=== PATIENT | female | born 1940 | race Caucasian/White ===

== ENCOUNTER 2017-03-03 10:48 | Day surgery (SDC) | payer MEDICARE, OTHER ==
[2017-03-03] VITALS (8 sets, daily range): BP systolic 127–154; BP diastolic 50–67; PULSE 57–72; RESP 14–18; O2SAT 95–98
[~2017-03-03] VITALS: Ht 157.5 cm; Wt 52.6 kg
[~2017-03-03 10:48] MED LIST: ALBU8.5H2 INHALATION; BUDE8.435 NS; CETI10TA27 PO; CHOL10008 PO; CLOP75TA3 PO; CeFAZolin Inj 2 GM in IV Premix 1 EACH IV ONE; Dexamethasone 4 mg/mL Inj IVPUSH PRN; EPHEDrine Sulfate 50 mg/mL Inj IVPUSH PRN; FLUT1DIS5 INHALATION; HYDR-4003 PO; HYDROmorphone 1 mg/mL Inj IVPUSH PRN; KEP500TA PO; Labetalol 5 mg/mL 4 mL Inj IV PRN; Lactated Ringer's 1,000 ML IV SCH; Lactated Ringer's 500 ML IV PRN; MONT10TA23 PO; MULT-666 PO; MetoCLOpramide 5 mg/mL 2 mL Inj IVPUSH PRN; Ondansetron 2 mg/mL 2 mL Inj IVPUSH PRN; Phenylephrine 10,000 mCg/mL Inj IVPUSH PRN; RANI150C4 PO; fentaNYL-PF 50 mCg/mL 2 mL Inj IVPUSH PRN; hydrALAZINE 20 mg/mL Inj IVPUSH PRN
[2017-03-03] MEDS ORDERED: Ketamine 10 mg/mL 20 mL Inj ONE (10:49)
[2017-03-03] MEDS ORDERED: fentaNYL-PF 50 mCg/mL 2 mL Inj ONE (10:49)
[2017-03-03] MEDS ORDERED: CeFAZolin Inj 2 gm / 50mL D5W IV ONE (10:50)
[2017-03-03] MEDS: Lactated Ringer's 1,000 ML IV SCH ×2 (10:51→14:01)
--- NOTE | 2017-03-03 13:47 | PCM.HPANE ---
Patient Data Date of Service: March 03, 2017 Surgeon Admitting Provider: Attending Provider:Analilia Peace MD Primary Care Physician:Becka Lema MD Other Provider:Simin Ferrara Anesthesia Reason for Visit Chronic Cholecystitis Ht/WT & BMI Height (Feet): 5 Height (Inches): 2.00 Weight (Kilograms): 52.6 Body Mass Index 21.00 Allergies Coded Allergies: aspirin (Verified Allergy, Severe, RESPIRATORY DIFFICULTY, 02/26/17) Uncoded Allergies: DUST MITES (Allergy, Unknown, UNKNOWN, 02/26/17) Past Anesthesia History Anesthesia History: Denies:: Abnormal Airway, Anesthesia Reactions, Difficult Intubation, Fam Anesthesia Reaction, Fam Malignant Hypertherm, Malignant Hyperthermia Diabetes History Hx Diabetes?: Yes Current Bedside Blood Glucose: 99 MRSA MRSA: No Medications Blood Thinner: Plavix Home Meds Incl Beta Mely: Yes (Metoprolol 12.5mg) Date Beta Mely Taken: February 17, 2017 Time Beta Mely Taken: 1800 Active Scripts Clopidogrel Bisulfate (Plavix)75 Mg Ywnsbv12 Mg PO DAILY #30 TABLET Ref 0 Prov:Jonah Ochoa DO 09/18/16 Levetiracetam (Keppra)500 Mg Nrkymf936 Mg PO BID #60 TABLET Prov:Avery Parker 08/18/16 Reported Medications Ranitidine 150 Mg Fxszfsg395 Mg PO BID Ref 0 02/26/17 Hydrocodone-Acetaminophen 5-325 mg 1 Each Tablet1 Tablet PO Q6H PRN For Pain Ref 0 02/26/17 Cholecalciferol (Vitamin D3) (Vitamin D3)1,000 Unit Tab.chew1,000 Unit PO DAILY 09/16/16 Budesonide 32 Mcg/Actuation Kayenta.pump8.43 Ml NS BID 09/16/16 Multivitamin (Once Daily)1 Each Tablet1 Each PO DAILY 09/16/16 Montelukast 10 Mg Mujcjf54 Mg PO DAILY #30 09/16/16 Cetirizine HCl (All Day Allergy)10 Mg Tab.chew10 Mg PO DAILY 09/16/16 Albuterol HFA (Proair HFA)8.5 Gm Hfa.aer.ad2 Puff INHALATION Q4H PRN For Shortness of Breath #9 09/16/16 Fluticasone/Salmeterol (Advair 500-50 Diskus)1 Each Disk.w.dev1 Puff INHALATION BID #180 09/16/16 Discontinued Reported Medications Prednisone (PredniSONE)50 Mg Natmlg91 Mg PO DAILY Ref 0 02/26/17 Metoprolol Tartrate 25 Mg Zahqvh87.5 Mg PO BID 30 Days Ref 0 02/26/17 Discontinued Scripts Metoprolol Tartrate 25 Mg Qresgb47 Mg PO BID #20 TABLET Prov:Jose Cruz Jackson 09/18/16 Prednisone (PredniSONE)20 Mg Teavvl95 Mg PO DAILY #8 TABLET Ref 0 Prov:Jonah العراقي 09/17/16 History History of ENT Problems?: No HEENT History: Positive for:: Sinus Problem (ALLERGIC RHINITIS) Denies:: Abnormal Airway Cataracts Difficult Intubation Dysphagia Hearing Problem Denture Type: None Teeth Condition: Within Normal Limits Other HEENT Pertinent History: S/P TONSILLECTOMY Hx of Heart Problems?: Yes Cardiovascular History: Positive for:: Atrial Fibrillation (SOLITARY BOUT OF PSVT R/T ETOH,OTC COLD MEDS & ALBUTEROL USAGE) Heart Murmur (HX OF-NONE HEARD CURRENTLY ECHO 09/2016 EF 65-70%) Irregular Heartbeat (PSVT, PVC'S ZIO PATCH 10/2016 PT REPORTS PALPITATIONS) Denies:: AICD Cardiac Surgery Chest Pain Congestive Heart Failure Edema Hypertension Pacemaker Thrombophlebitis Valvular Heart Disease Other Cardiac History: HX OF MACROCYTOSIS Hx of Respiratory Problem?: Yes Respiratory History: Positive for:: Asthma (HX OF RESP ARREST/VENTILATOR 2013) COPD (PFT'S 02/2010 & 10/2014 SHOW MOD PERSISTANT ASTHMA) Dyspnea (GANN) Use of Inhalers / NEBS Denies:: Chest Surgery Cough Emphysema Hemoptysis Pneumonia Tuberculosis Use of C-PAP Machine Hx Neurologic Problems?: Yes Neurological History: Positive for:: Dementia (COGNIYIVE IMPAIRMENT-REFERRAL TO DR. Mele BURNS/NEUROLOGY) Dizziness (Dizziness) Seizures (LAST SEIZURE 08/2016 ON KEPPRA) Denies:: Alzheimer's Disease CVA Headaches Parkinson's Disease Hx of GI Problems?: Yes Other GI Pertinent History: S/P APPY Hx of Problems?: No Genitourinary History: Denies:: HX of Hemodialysis Kidney Stones Urinary Tract Infection HX of Peritoneal Dialysis: No Female Hx: Denies:: Currently Endometriosis Pelvic Inflammatory Problems with Breasts? Skin History: Denies:: History Skin Disorders? Pressure Ulcers Hx Musculoskeletal Problems?: Yes Musculoskeletal History: Positive for:: Osteoarthritis (OSTEOPENIA) Denies:: Back Injury (C/OF BACK PAIN) Joint Replacement Musculoskeletal Trauma Hx of Psycho/Social Problems?: Yes Psycho Social History: Positive for:: Anxiety Hx Depression Denies:: Bipolar Disorder Suicide Attempt Hx Surgeries?: Yes (APPY,TONSILLECTOMY) Hx Any Other Health Problems?: Yes Other History: Positive for:: Hospitalization (seizure, asthma, ) Denies:: Cancer Endocrine Disease Thyroid Disease History Blood Transfusions: Denies:: Blood Transfuse Reaction Blood Transfusions Hx Diabetes: YesBedside Blood Glucose: 99 Hx Alcohol Use: Yes (HX OF HEAVIER USAGE)Alcoholic Drinks Per Day: 2-3/DAYHx Substance Use: No Smoking Status: Former Smoker Have You Smoked inLast 12 mo: NoApprox How Many Cigarettes/day: 1/2 PPD X 26YRS Stop/Bang S-Snoring: Do You Snore Loudly: No T-Tired: feel tired, fatigued: No O-Obsered: Observed not breath: No P-Blood Pressure: treated: No B- Body Mass Index > 35 kg/m2: No A- Age over 50: Yes N- Neck Large Circumference: No G- Gender Male: No DEREK Total Score: 1 DEREK Risk Assessment: Low Risk, <3 Yes Risk Assessment Category Category 1A: Patient has history of documented sleep apnea, and HAS NOT received any narcotic, sedative or anesthesia administration during this stay. Category 1B: Patient has history of documented sleep apnea, and HAS received any narcotic , sedative or anesthesia administration during this stay Category 2: Patient has SUSPECTED Obstructive Sleep Apnea, and HAS received any narcotic , sedative or anesthesia administration during this stay. Category 3: Patient has SUSPECTED Obstructive Sleep Apnea and HAS NOT received narcotic, sedative or anesthesia administration during this stay. Category 4: Outpatient in Procedural Areas with known sleep apnea or who screen positive for High Risk via the STOP/BANG questionnaire. Exam Exam Vital Signs Vital Signs Date Time Temp Pulse Resp B/P Pulse Ox O2 Delivery O2 Flow Rate FiO2 03/03/17 11:33 36.7 72 18 133/65 97 Room Air General Appearance: Alert, Oriented X3, Cooperative, No Acute Distress HEENT/AIRWAY: MP 2 Lungs: Clear to Auscultation, Normal Air Movement Heart: Exam Unremarkable, Regular Rate/Rhythm, No Murmurs/Rubs/Gallops Meds/Labs/Diagnostics Admission Meds Current Medications Lactated Ringer's (Lr) 1,000 ml @ 120 mls/hr Q8H20M IV Last administered on 10:51; Start 03/03/17 at 05:00; Stop 03/03/17 at 13:21; Status DC Gabapentin (Neurontin) 600 mg STK-MED ONCE .ROUTE Last administered on 11:20; Start 03/03/17 at 10:51; Stop 03/03/17 at 10:54; Status DC Acetaminophen (Tylenol) 650 mg STK-MED ONCE PO Last administered on 03/03/17 11:20; Start 03/03/17 at 10:52; Stop 03/03/17 at 10:55; Status DC Bedside Blood Glucose: 99 Plan Impression Patient chart reviewed, patient interviewed and anesthestic plan with risks, benefits, and alternatives discussed, and informed consent obtained. NPO per Anesth. Guidelines: Yes ASA Physical Status: ASA3 Severe Disease Anesthetic Plan: GA Bene/Risks/Altern/Consents: Yes HP Complete Prior to Induction: Yes Cristino Dejesus MD March 03, 2017 13:47
[2017-03-03] MEDS ORDERED: Bupivacaine-MPF 0.5% 30 mL Inj INFILTRATE ONE (14:01)
[2017-03-03] MEDS ORDERED: oxyCODONE-Acetamin 5-325 mg Tablet PO PRN (15:25)
--- NOTE | 2017-03-03 15:31 | PCM.SURGOP ---
Surgical Operative Report Date of Service: March 03, 2017 Pre Operative Diagnosis Chronic cholecystitis Post Operative Diagnosis Chronic cholecystitis Procedure: Laparoscopic cholecystectomy Surgeon and Stem Cleaning Machine Feeder: Surgeon: Analilia Peace M.D. Assistants: Juventino Cook PA-C; YVONNE Sanz The presence of an assistant store manager was necessary for dissection and retraction. Indication for Procedure This is a 76-year-old woman who has a history of right upper quadrant pain, usually in the evening. One episode was severe and caused her to go to urgent care. A CT scan was performed of the abdomen which revealed thickening of the gallbladder wall associated with sludge. A follow up ultrasound revealed at least one gallstone as well, with gallbladder wall thickening of 2 mm. She was diagnosed with likely chronic cholecystitis and consented for laparoscopic cholecystectomy. Findings: 1. The gallbladder was moderately inflamed, consistent with a diagnosis of chronic cholecystitis. 2. Intraoperative cholangiogram was attempted, however, the cystic duct was occluded with sludge. Some of this was removed by milking it out, but it could not be entirely removed, and therefore the cholangiogram could not be completed. Procedure Details The patient was brought to the operating room and placed in supine position. General endotracheal anesthesia was smoothly induced. Antibiotics were infused. A warming blanket and SCDs were placed. A foot board was placed. The operative field was prepped and draped in sterile fashion. A pause was performed to confirm the correct patient, procedure, site, and side. A transverse 10 mm incision was made just below the umbilicus. The abdomen was entered under direct vision using a Monika port. Three additional 5 mm ports were placed in the epigastrium and right upper quadrant. The gallbladder was identified and lifted cephalad. There were moderate adhesions due to cholecystitis. The duodenum was gently dissected off of the gallbladder. Dissection then proceeded to identify the cystic duct and to expose the lower one-third of the cystic plate. The cystic artery was divided with electrocautery and clipped once on the patient's side, and cauterized on the gallbladder side. Once only a single structure was seen to be entering the gallbladder, a clip was placed on the gallbladder side of the cystic duct. A ductotomy was made and a cholangiocatheter was inserted. However, despite adequate insertion, it could not be flushed. The Erickson catheter was then removed and a grasper was used to milk out multiple portions of gallbladder sludge from the cystic duct. These were tiny and black. They appeared to be occluding the cystic duct. The cholangiocatheter was reinserted. It still would not flush. The cystic duct was clearly long and was the only structure entering the gallbladder; therefore the cholangiogram was abandoned. The cholangiocatheter was then removed, two clips were placed on the cystic duct and it was divided. The gallbladder was then removed from its bed on the liver with electrocautery. Prior to completely removing the gallbladder, a final look was taken at the stump of the cystic artery and cystic duct, and there was no bleeding or bile leak. The gallbladder was then fully removed from the liver and placed in an EndoCatch bag and removed. The three 5 mm ports were removed under direct vision, the 10 mm mid abdominal port was removed, and a duinfr-nh-rkayw 0 PDS was used to close the fascia. There was no fascial defect at the end of the case. 0.5% Marcaine with epinephrine was infused at all port sites for postoperative analgesia. The skin was closed with subcuticular 4-0 Monocryl. Sterile dressings were placed. Sponge, instrument, and needle counts were correct at the end of the procedure. The patient was awakened from general anesthesia and taken to the postoperative care unit in good condition. Complications There were no periprocedural complications identified. Surgical Specimen Removed: Yes Specimen sent to Pathology: Yes Surgical Specimen description: Gallbladder Anesthetic Plan: GA Grafts, Implants: None Output, Estimated Blood Loss: 5 (ml) Blood Administration during lima: No Analilia Peace MD March 03, 2017 15:31
--- NOTE | 2017-03-03 15:47 | PCM.ANEP1 ---
Post Anesthesia PACU Phase 1 Assessment Vital Signs Vital Signs Date Time Temp Pulse Resp B/P Pulse Ox O2 Delivery O2 Flow Rate FiO2 03/03/17 15:44 59 16 132/57 98 Room Air 03/03/17 15:35 64 14 127/60 96 03/03/17 15:20 62 15 133/61 95 03/03/17 15:05 60 16 133/52 98 03/03/17 15:00 59 14 138/55 98 03/03/17 14:55 57 14 145/50 98 03/03/17 14:50 36.7 59 16 154/67 98 Room Air 03/03/17 11:33 36.7 72 18 133/65 97 Room Air Anesthetic Administered: GA Level of Alertness: Awake, talking Pain: No Nausea or Vomiting: No CV Function & Hydration Stable: Yes Airway Device: Endotrachial Tube Oxygen Delivery: Room Air Lungs: Clear to Auscultation, Normal Air Movement PACU Phase 2 Assessment Complications: No Follow up Care: N/A Patient Instructions Provided: N/A Cristino Dejesus MD March 03, 2017 15:47
--- NOTE | 2017-03-05 09:18 | PATH ---
SURGICAL PATHOLOGY Attending Physician:Analilia Peace MD CASE STATUS: Signed Out PATIENT NAME: HUAN PATEL PID: [id number] : 1940 DATE COLLECTED:03/03/2017 00:00 SPECIMEN: Gallbladder CLINICAL HISTORY: CHRONIC CHOLECYSTITIS 1). GALLBLADDER FINAL DIAGNOSIS: 1.GALLBLADDER: CHOLELITHIASIS WITH ASSOCIATED CHRONIC CHOLECYSTITIS. ICD10 K80.66 GROSS DESCRIPTION: The specimen is received in one formalin filled container labeled with the patient's name, sublabeled "gallbladder" and consists of an intact 8.5 x 3.0 x 2.6 CM gallbladder. The serosa is smooth. The wall is 0.2-0.6 CM in thickness. The mucosa is a dark green in color. The lumen contains a dark green mucoid material and greater than 50, less than 0.1-0.5 CM dark green black fragments of calculi. 6 entry level account representative sections are submitted in 2 cassettes. 03/04/2017 [facility] MICRO DESCRIPTION: See diagnosis. ICD-9 CODES: CPT CODES: 1: 09952 Electronically Signed Out Young Costello MD [facility] Pathology [facility] [address], [place] [address] Technical component performed at [facility], [facility] [address], [place], [address]
== END 2017-03-03 23:59 | disposition home or self-care (01) ==
LOC: SAS 10:48
PROVIDERS: ATTEND Surgery
DX: K80.10 Calculus of gallbladder with chronic cholecystitis without obstruction (principal); J45.909 Unspecified asthma, uncomplicated; I47.1 Supraventricular tachycardia; G31.84 Mild cognitive impairment of uncertain or unknown etiology; E55.9 Vitamin D deficiency, unspecified; G40.909 Epilepsy, unspecified, not intractable, without status epilepticus; I48.91 Unspecified atrial fibrillation; F41.9 Anxiety disorder, unspecified; Z87.891 Personal history of nicotine dependence; Z79.51 Long term (current) use of inhaled steroids
CPT/HCPCS: 47562; 88304; J0690; J3010; J7120